=== PATIENT | female | born 1940 | race Native Hawaiian/Other Pacific Islander ===

== ENCOUNTER 2021-10-16 09:41 | Outpatient (CLI) | payer OTHER | END 2021-10-16 19:44 | disposition home or self-care (01) | LOC: RAD 09:41 | PROVIDERS: ATTEND Internal Medicine | DX: N95.8 Other specified menopausal and perimenopausal disorders (principal) ==

== ENCOUNTER 2022-04-15 14:36 | Outpatient (CLI) | payer OTHER | END 2022-04-15 20:15 | disposition home or self-care (01) | LOC: MRI 14:36 | PROVIDERS: ATTEND Anesthesiology Pain Medicine | DX: M54.16 Radiculopathy, lumbar region (principal) ==